=== PATIENT | male | born 1950 | race Caucasian/White ===

== ENCOUNTER → 2024-12-25 09:46 | Outpatient (REF) | payer MEDICARE, SELFPAY | LOC: RCS 09:46 | PROVIDERS: FAMILY PHYSICIAN Internal Medicine | DX: R07.89 Other chest pain (principal) | CPT/HCPCS: 93017 ==

== ENCOUNTER → 2024-12-28 07:54 | Outpatient (REF) | payer MEDICARE, SELFPAY | LOC: HWRAD 07:54 | PROVIDERS: FAMILY PHYSICIAN Internal Medicine | DX: E78.5 Hyperlipidemia, unspecified (principal) | CPT/HCPCS: 75571 ==

== ENCOUNTER → 2025-10-20 08:06 | Outpatient (REF) | payer MEDICARE, SELFPAY | LOC: HWRAD 08:06 | PROVIDERS: ATTENDING PHYSICIAN Internal Medicine | DX: R91.1 Solitary pulmonary nodule (principal) | CPT/HCPCS: 71250 ==